=== PATIENT | female | born 2000 | race American Indian/Alaskan Native ===

== ENCOUNTER 2020-02-26 17:18 | Emergency (ER) | payer BC ==
[2020-02-26 17:30] VITALS: BP 121/51
--- NOTE | 2020-02-26 17:30 | Emergency Department Report ---
ED ENT HPI - General Chief complaint: Sore Throat Stated complaint: SORE THROAT/COUGH Time Seen by Provider: 02/26/20 17:26 Source: patient Mode of arrival: Ambulatory Limitations: No Limitations - History of Present Illness Initial comments: This is a 19-year-old female nontoxic well in appearance with no signs of distress presents to the ED with complaint of sore throat. Patient denies any drooling or hoarseness. Patient denies any other symptoms. Denies any fever, chills, headache, nausea, vomiting, chest pain or SOB. Denies any other complai nts. MD complaint: sore throat -: days(s) Location: throat Severity: mild Severity scale (0 -10): 8 Quality: aching Consistency: constant Improves with: none Worsens with: swallowing Associated Symptoms: pain with swallowing, sore throat. denies: fever, cough, gum swelling, toothache, tinnitus, hearing loss, discharge from ear, rhinorrhea - Related Data Previous Rx's Medication Instructions Recorded Last Taken Type Amoxicillin [Trimox CAP] 500 mg PO Q12H #20 capsule 02/26/20 Unknown Rx Allergies Allergy/AdvReac Type Severity Reaction Status Date / Time No Known Allergies Allergy Unverified 02/26/20 17:26 ED Dental HPI - General Chief complaint: Sore Throat Stated complaint: SORE THROAT/COUGH Time Seen by Provider: 02/26/20 17:26 Source: patient Mode of arrival: Ambulatory Limitations: No Limitations - Related Data Previous Rx's Medication Instructions Recorded Last Taken Type Amoxicillin [Trimox CAP] 500 mg PO Q12H #20 capsule 02/26/20 Unknown Rx Allergies Allergy/AdvReac Type Severity Reaction Status Date / Time No Known Allergies Allergy Unverified 02/26/20 17:26 ED Review of Systems ROS: Stated complaint: SORE THROAT/COUGH Other details as noted in HPI Constitutional: denies: chills, fever Eyes: denies: eye pain, eye discharge, vision change ENT: throat pain. denies: ear pain Respiratory: denies: cough, shortness of breath, wheezing Cardiovascular: denies: chest pain, palpitations Endocrine: no symptoms reported Gastrointestinal: denies: abdominal pain, nausea, diarrhea Genitourinary: denies: urgency, dysuria, discharge Musculoskeletal: denies: back pain, joint swelling, arthralgia Skin: denies: rash, lesions Neurological: denies: headache, weakness, paresthesias Psychiatric: denies: anxiety, depression Hematological/Lymphatic: denies: easy bleeding, easy bruising ED Past Medical Hx - Past Medical History Previous Medical History?: No - Surgical History Past Surgical History?: No - Medications Home Medications: Home Medications Medication Instructions Recorded Confirmed Last Taken Type Amoxicillin [Trimox CAP] 500 mg PO Q12H #20 capsule 02/26/20 Unknown Rx ED Physical Exam - General Limitations: No Limitations General appearance: alert, in no apparent distress - Head Head exam: Present: atraumatic, normocephalic - Eye Eye exam: Present: normal appearance - Expanded ENT Exam Expanded Ear exam: Present: normal external inspection Mouth exam: Present: normal external inspection, tongue normal. Absent: drooling, trismus, muffled voice Teeth exam: Present: normal inspection Throat exam: Positive: tonsillar erythema, tonsillomegaly (2+), other (uvula midline). Negative: tonsillar exudate, R peritonsillar mass, L peritonsillar mass - Neck Neck exam: Present: normal inspection, full ROM. Absent: tenderness, meningismus, lymphadenopathy - Respiratory Respiratory exam: Absent: respiratory distress - Cardiovascular Cardiovascular Exam: Present: regular rate - Extremities Exam Extremities exam: Present: full ROM - Back Exam Back exam: Present: full ROM - Neurological Exam Neurological exam: Present: alert, oriented X3, normal gait - Psychiatric Psychiatric exam: Present: normal affect, normal mood - Skin Skin exam: Present: warm, dry, intact, normal color. Absent: rash ED Course Vital Signs 02/26/20 17:29 Temperature 98.7 F Pulse Rate 94 H Respiratory 20 Rate Blood Pressure 121/51 [Right] O2 Sat by Pulse 97 Oximetry - Reevaluation(s) Reevaluation #1: 02/26/20 17:28 Patient is speaking in full sentences with no signs of distress noted. ED Medical Decision Making - Medical Decision Making Patient was instructed to Follow-up with a primary care doctor in 3-5 days or if symptoms worsen and continue return to emergency room as soon as possible. At time of discharge, the patient does not seem toxic or ill in appearance. No acute signs of distress noted. Patient agrees to discharge treatment plan of care. No further questions noted by the patient. Critical care attestation.: If time is entered above; I have spent that time in minutes in the direct care of this critically ill patient, excluding procedure time. ED Disposition Clinical Impression: Pharyngitis Qualifiers: Pharyngitis/tonsillitis etiology: unspecified etiology Qualified Code(s): J02.9 - Acute pharyngitis, unspecified Disposition: TO HOME OR SELFCARE Is pt being admited?: No Does the pt Need Aspirin: No Condition: Stable Instructions: Pharyngitis (ED) Additional Instructions: Follow-up with a primary care doctor in 3-5 days or if symptoms worsen and continue return to emergency room as soon as possible. Prescriptions: Amoxicillin [Trimox CAP] 500 mg PO Q12H #20 capsule Referrals: PRIMARY CAREMD [Referring] - 3-5 Days LOAN KEENE MD [Staff Physician] - 3-5 Days Forms: Work/School Release Form(ED)
== END 2020-02-26 17:40 | disposition home or self-care (01) ==
LOC: ED 17:18
DX: J02.9 Acute pharyngitis, unspecified (principal); Z79.2 Long term (current) use of antibiotics
CPT/HCPCS: 99281

== ENCOUNTER 2021-01-17 15:09 | Emergency (ER) | payer BC ==
[2021-01-17 17:43] VITALS: BP 98/65
[2021-01-17] MEDS ORDERED: SODIUM CHLORIDE 0.9% 1000 ML 1,000 ML IV ONE (17:45)
[2021-01-17] MEDS ORDERED: FAMOTIDINE 20 MG/2 ML INJ IV ONE (17:46)
[2021-01-17] MEDS ORDERED: PROCHLORPERAZINE EDISYLATE 10 MG/2 ML VIAL IV ONE (18:00)
[2021-01-18] MEDS ORDERED: EPINEPHrine/PF 1 MG/1 ML INJ ONE (06:33)
== END 2021-01-17 22:00 | disposition left against medical advice (07) ==
LOC: ED 15:09 → TRG 15:09 → APU 15:13 → EDSTATUS 16:15 → ED 18:30
DX: R06.02 Shortness of breath (principal); Z53.21 Procedure and treatment not carried out due to patient leaving prior to being seen by health care provider
CPT/HCPCS: J0171

== ENCOUNTER 2021-07-23 11:31 | Emergency (ER) | payer BC, MEDICAID ==
[2021-07-23 12:07] VITALS: BP 135/90
[2021-07-23] MEDS ORDERED: ACETAMINOPHEN 500 MG TAB PO ONE (12:17)
--- NOTE | 2021-07-23 12:18 | Emergency Department Report ---
ED General Adult HPI - General Chief complaint: Vaginal Bleeding Stated complaint: VAGINAL BLEEDING PUI?: No Time Seen by Provider: 07/23/21 12:07 Source: patient, RN notes reviewed, old records reviewed Mode of arrival: Ambulatory Limitations: No Limitations - History of Present Illness Initial comments: During the history and physical examination, I am chaperoned by fuel oil clerk Hortencia Lopez SIGN PAINTER: Dr. Mims The patient is a 28-year-old female, status post spontaneous vaginal delivery, active labor, IUP at term, male, preeclampsia affecting , gestational diabetes, who was discharged from this hospital on June 17 after an uncomplicated delivery. The patient reports that she saw her SIGN PAINTER doctor at the end of June, and reports that "everything was okay", specifically reports normal blood pressure. She presents to the ER today with a complaint of vaginal bleeding and cramping. This is the first episode of vaginal bleeding she has had since she delivered. She denies additional injuries and complaints. She has used 2 pads within the past 12 hours. She denies irritative and obstructive urinary symptoms. No recent sexual activity -: Gradual, hour(s), days(s) Quality: aching Consistency: intermittent Improves with: none Worsens with: none Associated Symptoms: denies other symptoms - Related Data Previous Rx's Medication Instructions Recorded Last Taken Type Amoxicillin [Trimox CAP] 500 mg PO Q12H #20 capsule 02/26/20 Unknown Rx Allergies Allergy/AdvReac Type Severity Reaction Status Date / Time No Known Allergies Allergy Verified 01/17/21 17:43 ED Review of Systems ROS: Stated complaint: VAGINAL BLEEDING Other details as noted in HPI Comment: All other systems reviewed and negative Genitourinary: other (Menstruation). denies: urgency, dysuria, frequency ED Past Medical Hx - Past Medical History Hx Hypertension: No Hx Congestive Heart Failure: No Hx Diabetes: No (gestational) Hx Deep Vein Thrombosis: No Hx Renal Disease: No Hx Sickle Cell Disease: No Hx Seizures: No Hx Asthma: No Hx COPD: No Hx HIV: No - Social History Smoking Status: Never Smoker - Medications Home Medications: Home Medications Medication Instructions Recorded Confirmed Last Taken Type Amoxicillin [Trimox CAP] 500 mg PO Q12H #20 capsule 02/26/20 06/16/21 Unknown Rx ED Physical Exam - General Limitations: No Limitations General appearance: alert, in no apparent distress - Head Head exam: Present: atraumatic, normocephalic - Eye Eye exam: Present: normal appearance, EOMI. Absent: nystagmus - ENT ENT exam: Present: normal exam, normal orophraynx, mucous membranes moist, normal external ear exam - Neck Neck exam: Present: normal inspection, full ROM. Absent: tenderness, meningismus - Respiratory Respiratory exam: Present: normal lung sounds bilaterally. Absent: respiratory distress, wheezes, rales, rhonchi, stridor, decreased breath sounds - Cardiovascular Cardiovascular Exam: Present: regular rate, normal rhythm, normal heart sounds. Absent: bradycardia, tachycardia, irregular rhythm, systolic murmur, diastolic murmur, rubs, gallop - GI/Abdominal GI/Abdominal exam: Present: soft. Absent: distended, tenderness, guarding, rebound, rigid, pulsatile mass - External exam: Present: normal external exam, bleeding, other (Chaperoned by Hortencia Lopez) - Extremities Exam Extremities exam: Present: normal inspection, full ROM, other (2+ pulses noted in the bilateral upper and lower extremities. There is no palpable cord. negative Homans sign. Muscular compartments are soft. The pelvis is stable.). Absent: pedal edema, calf tenderness - Back Exam Back exam: Present: normal inspection, full ROM. Absent: tenderness, CVA tenderness (R), CVA tenderness (L), paraspinal tenderness, vertebral tenderness - Neurological Exam Neurological exam: Present: alert, oriented X3, normal gait, other (No facial droop. Tongue midline. Extraocular movements intact bilaterally. Facial sensation intact to light touch in V1, V2, V3 distribution bilaterally. 5 and a 5 strength in 4 extremities. Sensation intact to light touch in 4 extremities.). Absent: motor sensory deficit - Psychiatric Psychiatric exam: Present: normal affect, normal mood - Skin Skin exam: Present: warm, dry, intact, normal color. Absent: rash ED Course Vital Signs 07/23/21 12:06 Temperature 97.6 F Pulse Rate 82 Respiratory 16 Rate Blood Pressure 135/90 O2 Sat by Pulse 100 Oximetry - Reevaluation(s) Reevaluation #1: 07/23/21 12:42 Differential diagnosis, including but not limited to: Menstruation Assessment and plan: 20-year-old female, with a soft benign abdomen, without rebound, guarding or peritoneal signs, presenting with menstruation, which is the first onset of vaginal bleeding since she delivered and gave approximately 5 weeks ago. She is afebrile, with reassuring vital signs, specifically denies headache, neck pain, chest pain, vomiting, loss of vision, and irritative/obstructive urinary symptoms. We will treat her supportively/symptomatically. Check CBC. Check hCG. I doubt retained products of conception, given that patient is approximately 5 weeks . Reassess after laboratory studies have resulted. I discussed this with the patient. She is agreeable to this plan of care 07/23/21 13:45 Patient has appropriate hemoglobin and hematocrit. She is not . This is the most likely menstruation. Expectant management and outpatient follow-up ED Medical Decision Making - Lab Data Result diagrams: 07/23/21 12:45 Vital Signs 07/23/21 12:06 Temperature 97.6 F Pulse Rate 82 Respiratory 16 Rate Blood Pressure 135/90 O2 Sat by Pulse 100 Oximetry Lab Results 07/23/21 07/23/21 Range/Units 12:45 12:45 WBC 5.2 (4.5-11.0) K/mm3 RBC 4.19 (3.65-5.03) M/mm3 Hgb 11.7 (10.1-14.3) gm/dl Hct 35.0 (30.3-42.9) % MCV 84 (79-97) fl MCH 28 (28-32) pg MCHC 33 (30-34) % RDW 14.7 (13.2-15.2) % Plt Count 282 (140-440) K/mm3 HCG, Quant < 2 (0-4) mIU/mL Critical care attestation.: If time is entered above; I have spent that time in minutes in the direct care of this critically ill patient, excluding procedure time. ED Disposition Clinical Impression: Vaginal bleeding Disposition: 01 HOME / SELF CARE / HOMELESS Is pt being admited?: No Does the pt Need Aspirin: No Condition: Stable Instructions: Menstruation Additional Instructions: Patient may take [id number] ibuprofen, with [id number] a cetaminophen, as needed for physical pain. Patient should not resume heavy lifting or sexual activity until cleared to do so by her primary care doctor or SIGN PAINTER physician. Recommend follow-up with primary care doctor or SIGN PAINTER physician within the next 10 days. Please return to the emergency room right away with new pain, worsened pain, migration of pain, projectile vomiting, change in mental status, confusion, inability tolerate liquid feeds, new, worsened or different symptoms not present on the initial emergency room evaluation Referrals: MELODY MIMS MD [Staff Physician] - 7-10 days [facility] [Provider Group] - 7-10 days
[2021-07-23 13:17] LABS: Hemoglobin 11.7 gm/dl (10.1-14.3); Mean Corpuscular HGB Conc 33 % (30-34); Mean Corpuscular Volume 84 fl (79-97); Platelet Count 282 K/mm3 (140-440); Red Blood Count 4.19 M/mm3 (3.65-5.03); Red Cell Distribution Width 14.7 % (13.2-15.2)
[2021-07-23] MEDS ORDERED: IBUPROFEN 400 MG TAB PO ONE (13:45)
== END 2021-07-23 13:59 | disposition home or self-care (01) ==
LOC: ED 11:31
DX: O72.1 Other immediate postpartum hemorrhage (principal)
CPT/HCPCS: 36415; 84702; 85027; 99283